=== PATIENT | female | born 1995 | race Caucasian/White ===

== ENCOUNTER 2025-06-14 21:21 | Emergency (ER) | payer SELFPAY ==
[~2025-06-14] VITALS: Ht 160 cm; Wt 47.6 kg
[2025-06-14 21:24] VITALS: BP 105/76
[2025-06-14] MEDS ORDERED: ONDANSETRON ODT 4 MG TAB.RAPDIS ONE (21:52)
[2025-06-14] MEDS ORDERED: HYDROCODONE/APAP 5-325MG TABLET ONE (21:52)
[2025-06-14] MEDS: HYDROCODONE/APAP 5-325MG TABLET PO ONE (21:55)
[2025-06-14] MEDS: ONDANSETRON ODT 4 MG TAB.RAPDIS SL ONE (21:55)
[2025-06-14] MEDS ORDERED: ONDA4TAB11 PO (22:00)
[2025-06-14] MEDS ORDERED: HYDR-4209 PO (22:00)
[2025-06-14 23:00] VITALS: BP 105/76; TEMP 98; O2SAT 97
== END 2025-06-14 23:01 | disposition home or self-care (01) ==
LOC: ER 21:21
DX: S20.211A Contusion of right front wall of thorax, initial encounter (principal); R51.9 Headache, unspecified; V00.838A Other accident with motorized mobility scooter, initial encounter; Y93.89 Activity, other specified; Y92.89 Other specified places as the place of occurrence of the external cause; Y99.8 Other external cause status
CPT/HCPCS: 71045; A4606; A4663; Q0162